=== PATIENT | female | born 1950 | race Caucasian/White ===

== ENCOUNTER 2019-10-07 15:29 | Emergency (ER) | payer OTHER ==
[~2019-10-07] VITALS: Ht 152.4 cm; Wt 49.4 kg
[2019-10-07 16:15] LABS: Basophils # (auto) 0.1 uL; Basophils % (auto) 0.6 % (0.0-2.0); Eosinophils # (auto) 0.1 uL; Eosinophils % (auto) 1.5 % (0.0-7.0); Hematocrit 40.8 % (36.0-46.0); Hemoglobin 13.9 g/dL (12.2-16.2); Lymphocytes % (auto) 10.6 % (10.0-50.0); Mean Corpuscular Hemoglobin 31.9 pg (28.0-32.0); Mean Corpuscular Volume 93.5 fL (80.0-100.0); Monocytes # (auto) 0.5 uL; Monocytes % (auto) 5.6 % (0.0-12.0); Neutrophils # (auto) 7.8 uL; Neutrophils % (auto) 81.7 % (37.0-80.0); Platelet Count (auto) 247 10^3/uL (140-450); Red Blood Cells 4.37 10^6/uL (4.0-5.20); White Blood Cell 9.6 10^3/uL (4.4-10.8)
[2019-10-07 16:25] LABS: Albumin 3.5 g/dL (3.4-5.0); Potassium 4.1 mmol/L (3.5-5.1)
[2019-10-07 16:28] LABS: BUN/Creatinine Ratio 16.1; Bilirubin, Total 0.3 mg/dL (0.2-1.0); Total Protein 6.7 g/dL (6.4-8.2)
[2019-10-07] MEDS ORDERED: TETANUS-DIPTH-ACEL PERTUSSIS 0.5ML SYRG IM ONE (17:45)
[2019-10-07 20:20] VITALS: BP 138/65
== END 2019-10-07 20:28 | disposition home or self-care (01) ==
LOC: ER 15:33
DX: S00.33XA Contusion of nose, initial encounter (principal); S00.531A Contusion of lip, initial encounter; M19.90 Unspecified osteoarthritis, unspecified site; E78.5 Hyperlipidemia, unspecified; I10 Essential (primary) hypertension; F17.210 Nicotine dependence, cigarettes, uncomplicated; W01.198A Fall on same level from slipping, tripping and stumbling with subsequent striking against other object, initial encounter; Y93.89 Activity, other specified; Y92.89 Other specified places as the place of occurrence of the external cause; Y99.8 Other external cause status
CPT/HCPCS: 36415; 70450; 70486; 80053; 85025; 90471; 90715; 93005

== ENCOUNTER 2024-03-19 08:14 | Emergency (ER) | payer OTHER ==
[~2024-03-19] VITALS: Ht 152.4 cm; Wt 46.3 kg
[2024-03-19 09:22] VITALS: PULSE 105; RESP 19; O2SAT 98
[2024-03-19 09:36] LABS: Basophils # (auto) 0 10 ^3/uL (0-0.2); Basophils % (auto) 0.3 % (0.0-2.0); Eosinophils # (auto) 0 10 ^3/uL (0-0.8); Eosinophils % (auto) 0.2 % (0.0-7.0); Hematocrit 40.6 % (36.0-46.0); Hemoglobin 13.6 g/dL (12.2-16.2); Lymphocytes # (auto) 0.9 10 ^3/uL (0.4-5.4); Lymphocytes % (auto) 8.7 % (10.0-50.0); Mean Corpuscular Hemoglobin 31.4 pg (28.0-32.0); Mean Corpuscular Hgb Conc. 33.5 g/dL (32.0-36.0); Mean Corpuscular Volume 93.7 fL (80.0-100.0); Monocytes % (auto) 9.7 % (0.0-12.0); Neutrophils # (auto) 8.6 10 ^3/uL (1.6-8.6); Neutrophils % (auto) 81.1 % (37.0-80.0); Nucleated Red Blood Cells % 0.1 %; Red Blood Cells 4.34 10^6/uL (4.0-5.20); Red Cell Distribution Width 14.7 % (11.8-14.3); White Blood Cell 10.6 10^3/uL (4.4-10.8)
[2024-03-19 09:38] LABS: Base Excess -2.4 mmol/L (-2.0-2.0)
[2024-03-19] MEDS: ALBUTEROL SULF 2.5 MG/0.5ML(0.5%) NEB SOLN NEB ONE (09:39)
[2024-03-19] MEDS: IPRATROPIUM BROM 0.5 MG/2.5ML INH SOL NEB ONE (09:39)
[2024-03-19 09:46] LABS: INR 1.09 (0.9-1.15); Partial Thromboplastin Time 23.9 SEC (24.5-34.5); Prothrombin Time 11.5 sec (9.3-11.8)
[2024-03-19 10:00] LABS: Alanine Aminotransferase 46 U/L (7-40); Albumin 4.1 g/dL (3.2-4.8); Alkaline Phosphatase 80 U/L (46-116); Anion Gap 3 (5-15); Aspartate Aminotransferase 30 U/L (13-40); Blood Urea Nitrogen 13 mg/dL (9-23); Carbon Dioxide 28 mmol/L (20-30); Chloride 109 mmol/L (98-107); Glucose 94 mg/dL (74-106); Magnesium 1.9 mg/dL (1.6-2.6); Potassium 4.6 mmol/L (3.5-5.1); Sodium 140 mmol/L (136-145)
[2024-03-19] MEDS: AZITHROMYCIN 250 MG TAB PO ONE (10:00)
[2024-03-19 10:01] LABS: Bilirubin, Total 0.8 mg/dL (0.2-1.0)
[2024-03-19] MEDS: MAGNESIUM SULFATE 1GM/100ML 100 ML IV SCH (10:01)
[2024-03-19] MEDS: HYDROCORTISONE SOD SUCC 100 MG/2ML INJ VIAL IV ONE (10:01)
[2024-03-19] MEDS: ACETAMINOPHEN 325 MG TAB PO ONE (10:01)
[2024-03-19 10:19] LABS: Calcium 9.1 mg/dL (8.7-10.4)
[2024-03-19] MEDS ORDERED: FURO1TAB33 PO (11:52)
[2024-03-19] MEDS ORDERED: AZIT500T66 PO (11:52)
[2024-03-19] MEDS ORDERED: PRED1PAK9 PO (11:52)
[2024-03-19] MEDS: FUROSEMIDE 40 MG/4 ML VIAL IV ONE (12:21)
[2024-03-19 13:13] VITALS: BP 125/68; PULSE 102; RESP 16; O2SAT 97
== END 2024-03-19 13:46 | disposition home or self-care (01) ==
LOC: EDBD 08:14 → ER 08:14
DX: J44.1 Chronic obstructive pulmonary disease with (acute) exacerbation (principal); I11.0 Hypertensive heart disease with heart failure; I50.9 Heart failure, unspecified; J40 Bronchitis, not specified as acute or chronic; E78.5 Hyperlipidemia, unspecified; F17.210 Nicotine dependence, cigarettes, uncomplicated; Z88.6 Allergy status to analgesic agent; Z85.3 Personal history of malignant neoplasm of breast; Z90.49 Acquired absence of other specified parts of digestive tract
CPT/HCPCS: 36415; 36600; 71045; 80053; 82805; 83735; 83880; 84484; 85025; 85610; 85730; 93005; 94640; 96365; 96375; 99291; J1720; J1940; J3475; J7644

== ENCOUNTER 2025-08-23 22:00 | Inpatient (IN) | payer OTHER ==
[~2025-08-23] VITALS: Ht 152.4 cm; Wt 55.0 kg
[~2025-08-23 22:00] MED LIST: AZIT500T66 PO; FURO1TAB33 PO; PRED1PAK9 PO
--- NOTE | 2025-08-23 22:11 | ECG ---
[facility] Test Date: 2025-08-23 Test Time: 22:03:21 Pat Name: BRANDON LEE Department: ED Room: 0295T Gender: F Welfare Specialist: CHI : 1950 Requested By: MAXIMILIANO CRAIN Order Number: [id number] Reading MD: Stephon Mack Measurements Intervals [place] Rate: 112 P: 53 MN: 163 QRS: 96 QRSD: 135 T: -38 QT: 366 QTc: 500 Interpretive Statements Sinus tachycardia Anterior infarct, acute (LAD) Lateral leads are also involved Electronically Signed On 08-26-2025 17:18:31 PST by Stephon Mack Please click the below link to view image of tracing.
[2025-08-23] MEDS: MORPHINE SULFATE INJ 2 MG/ml SYRG IV ONE ×2 (22:16→23:32)
[2025-08-23] MEDS: MORPHINE SULFATE 4 MG/ML SYR/VIAL ONE (22:19)
[2025-08-23 22:25] LABS: Hematocrit 40.9 % (36.0-46.0); Hemoglobin 13.4 g/dL (12.2-16.2); Mean Corpuscular Hemoglobin 28.1 pg (28.0-32.0); Mean Corpuscular Volume 86.0 fL (80.0-100.0); Nucleated Red Blood Cells % 0.1 %
--- NOTE | 2025-08-23 22:25 | ED.PDOC ---
History of Present Illness HPI Comments 75-year-old female who came to ER via EMS for chest pains. Patient does have history of hypertension, COPD, CHF, breast cancer, NSTEMI. States she has been having intermittent episodes of has been for the past 3 days, initial starting from the left side of the chest going to the right, described as sharp, as sociated shortness of breath, nausea, headaches and dizziness. She was given 324 aspirin while in the ER. Was saturating 84% on room air on scene. REVIEW OF SYSTEMS: General: No fever, no chills, or fatigue HEENT: No sore throat, no earache, no congestion, no neck pain. Cardiac: + chest pain. No palpitations. Lungs: No shortness of breath, no cough. GI: + nausea, no vomiting, no diarrhea, no constipation, + abdominal pain : No dysuria, frequency, or urgency. No hematuria. Musculoskeletal: No joint pain , no joint swelling, no extremity edema. Skin: No rash, no itching. Neuro: No headache, no dizziness, no weakness (And as sated in HPI) PHYSICAL EXAM: General: Awake, alert and oriented. No acute distress. Skin: Skin in warm, dry and intact. Appropriate color for ethnicity. HEENT: The head is normocephalic and atraumatic. Conjunctivae are clear without exudates or hemorrhage. Sclera is non-icteric. Eyelids are normal in appearance without swelling or lesions. Oral mucosa is pink and moist Neck: The neck is supple with normal range of motion. No JVD. Cardiac: Heart rate and rhythm are normal. No murmurs, gallops, or rubs are auscultated. Respiratory: No signs of respiratory distress. Lung sounds are clear in all lobes bilaterally without rales, rhonchi, or wheezes. Abdominal: Abdomen is soft, +-tender without distention, guarding or rigidity. Bowel sounds are present and normoactive in all four quadrants. Extremities: Lower extremities without edema. Neurological: The patient is awake, alert and oriented to person, place, and time with normal speech. Speech is clear. There is no facial asymmetry. Psychiatric: Appropriate mood and affect. Good judgement and insight. Chief Complaint: Chest Pain Time Seen by MD: 22:24 Primary Care Provider: " I DON'T KNOW" Reviewed Notes: Nurses Notes Allergies: Coded Allergies: Codeine (Verified Allergy, Unknown, 03/19/24) Latex (Verified Allergy, Unknown, 08/23/25) Home Meds Active Scripts Furosemide (Lasix) 20 Mg Tb, 1 TAB PO DAILY for 10 Days, #10 TAB 1 Refill Prov:ANABELLE COATS MD 03/19/24 Prednisone (Prednisone) 10 Mg Daryn, 10 MG PO DAILY for 4 Days, #10 PACK 4 Refills Prov:ANABELLE COATS MD 03/19/24 Azithromycin (Azithromycin) 500 Mg Tab, 1 TAB PO DAILY for 3 Days, #3 TAB 0 Refills Prov:ANABELLE COATS MD 03/19/24 Information Source: Patient Mode of Arrival: EMS Past Medical History PAST MEDICAL HISTORY: Arthritis (Rheumatoid), Cancer (Breast), CHF, COPD, CVA, High Lipids, HTN, [place] Surgical History: Cholecystectomy, KENNEL TECHNICIAN History: No Pertinent KENNEL TECHNICIAN History Family History Family History: Reviewed,noncontributory to illness Social History Smoker: Quit Less Than 1 Year, Cigarettes Alcohol: Denies ETOH Use Drugs: Denies Drug Use Lives In: Home Was a procedure done? Was a procedure done?: No EKG EKG : Pulse Rate (adult): 112 Cardiac Rhythm: ST Differential Dx Considerations may include: coronary artery disease, [place], angina, chest pain, shortness of breath X-Ray, Labs, Meds, VS Vital Signs Date Time Temp Pulse Resp B/P (MAP) Pulse Ox O2 Delivery O2 Flow Rate FiO2 08/24/25 00:55 92 08/24/25 00:30 91 18 120/54 (76) 96 08/24/25 00:17 101 20 118/71 08/24/25 00:00 102 18 118/71 (87) 96 08/23/25 23:32 97 16 123/57 08/23/25 23:30 94 18 123/57 (79) 96 08/23/25 23:11 97 22 114/55 08/23/25 23:00 96 20 116/94 (101) 97 08/23/25 22:59 95 08/23/25 22:50 97 20 116/54 (74) 97 08/23/25 22:35 98 18 119/58 (78) 96 08/23/25 22:33 99 22 96 Nasal Cannula* 6 44 12/15/25 22:25 112 08/23/25 22:20 108 20 139/83 (101) 96 08/23/25 22:16 105 20 140/82 08/23/25 22:11 99.6 110 20 161/81 94 99.6 08/23/25 22:07 99.6 111 22 146/52 (83) 97 99.6 08/23/25 22:07 111 08/23/25 22:03 112 Lab Test 08/23/25 23:34 08/23/25 22:40 Range/Units Troponin I High Sensitivity 21 15 </=34 ng/L White Blood Count 12.3 H 4.4-10.8 10^3/uL Red Blood Count 4.76 4.0-5.20 10^6/uL Hemoglobin 13.4 12.2-16.2 g/dL Hematocrit 40.9 36.0-46.0 % Mean Corpuscular Volume 86.0 80.0-100.0 fL Mean Corpuscular Hemoglobin 28.1 28.0-32.0 pg Mean Corpuscular Hemoglobin Concent 32.7 32.0-36.0 g/dL Red Cell Distribution Width 14.6 H 11.8-14.3 % Platelet Count 306 140-450 10^3/uL Mean Platelet Volume 8.2 6.9-10.8 fL Neutrophils (%) (Auto) 85.2 H 37.0-80.0 % Lymphocytes (%) (Auto) 4.8 L 10.0-50.0 % Monocytes (%) (Auto) 9.1 0.0-12.0 % Eosinophils (%) (Auto) 0.1 0.0-7.0 % Basophils (%) (Auto) 0.8 0.0-2.0 % Neutrophils # (Auto) 10.5 H 1.6-8.6 10 ^3/uL Lymphocytes # (Auto) 0.6 0.4-5.4 10 ^3/uL Monocytes # (Auto) 1.1 0-1.3 10 ^3/uL Eosinophils # (Auto) 0 0-0.8 10 ^3/uL Basophils # (Auto) 0.1 0-0.2 10 ^3/uL Nucleated Red Blood Cells 0.1 % Sodium Level 134 L 136-145 mmol/L Potassium Level 4.0 3.5-5.1 mmol/L Chloride Level 97 L 98-107 mmol/L Carbon Dioxide Level 28 20-31 mmol/L Anion Gap 9 5-15 Blood Urea Nitrogen 11 9-23 mg/dL Creatinine 0.50 L 0.550-1.02 mg/dL Glomerular Filtration Rate Calc 97 >90 mL/min BUN/Creatinine Ratio 22.0 H 10.0-20.0 Serum Glucose 140 H 74-106 mg/dL Calcium Level 9.3 8.7-10.4 mg/dL B-Type Natriuretic Peptide 373.54 0-100 pg/mL Lipase 20 12-53 U/L Current Medications Medications (Trade) Dose Ordered Sig/Edmundo Route Start Time Stop Time Status Last Admin Morphine Sulfate 2 mg ONCE ONCE IV 08/23/25 22:15 08/23/25 22:16 DC 08/23/25 22:16 Morphine Sulfate 2 mg ONCE ONCE IV 08/23/25 23:30 08/23/25 23:31 DC 08/23/25 23:32 CHEST RADIOGRAPH INDICATION: cp TECHNIQUE: Single frontal view of the chest was obtained COMPARISON: XY CHEST PORTABLE on DOS: 03/19/24 FINDINGS: Cardiac silhouette is mildly enlarged. Mild prominence of the pulmonary vasculature. Trace bilateral pleural effusions with mild bibasilar atelectasis / consolidation. Bones and soft tissues demonstrate no significant abnormality. IMPRESSION: Mild cardiomegaly and pulmonary vascular congestion with trace bilateral pleural effusions and bibasilar atelectasis/consolidation. Time of 1ST Reevaluation: 22:17 Reevaluation 1ST: Unchanged Patient Education/Counseling: Need For Follow Up Family Education/Counseling: No Family Present SEPSIS Sepsis Screen Date sepsis recognized/suspect: Aug 23, 2025 Time Sepsis recognized/suspect: 2199 Recent Procedure: No On Antibiotic Therapy: No Respiratory Rate >20: No Heart Rate >90: Yes Temp<36 C (96.8 F) or >38.3 C: No SBP <90 or MAP <65 mmHG: No New Acute Mental Status Change: No Is the patient on CPAP, BIPAP,: No Physician Orders Chest Xray 1 View (08/23/25 22:09) Vital Signs Q1HR (08/23/25 22:09) Saline Lock (08/23/25 22:09) Systems Development Consultant (08/23/25 ) Electrocardigram (08/23/25 23:21) Vital Signs Date Time Temp Pulse Resp B/P (MAP) Pulse Ox O2 Delivery O2 Flow Rate FiO2 08/24/25 00:55 92 08/24/25 00:30 91 18 120/54 (76) 96 08/24/25 00:17 101 20 118/71 08/24/25 00:00 102 18 118/71 (87) 96 08/23/25 23:32 97 16 123/57 08/23/25 23:30 94 18 123/57 (79) 96 08/23/25 23:11 97 22 114/55 08/23/25 23:00 96 20 116/94 (101) 97 08/23/25 22:59 95 08/23/25 22:50 97 20 116/54 (74) 97 08/23/25 22:35 98 18 119/58 (78) 96 08/23/25 22:33 99 22 96 Nasal Cannula* 6 44 08/23/25 22:25 112 08/23/25 22:20 108 20 139/83 (101) 96 08/23/25 22:16 105 20 140/82 08/23/25 22:11 99.6 110 20 161/81 94 99.6 08/23/25 22:07 99.6 111 22 146/52 (83) 97 99.6 08/23/25 22:07 111 08/23/25 22:03 112 Laboratory Tests Test 08/23/25 22:40 White Blood Count 12.3 10^3/uL (4.4-10.8) H Medications Medications Dose Ordered Sig/Edmundo Route Start Time Stop Time Status Last Admin Dose Admin Morphine Sulfate 2 mg ONCE ONCE IV 08/23/25 22:15 08/23/25 22:16 DC 08/23/25 22:16 Morphine Sulfate 2 mg ONCE ONCE IV 08/23/25 23:30 08/23/25 23:31 DC 08/23/25 23:32 Departure 1 Departure Time of Disposition: 00:59 Impression: Primary Impression: Chest pain Disposition: ADMITTED INPATIENT Condition: Stable Comments 75-year-old female who presented with the acute chest pain. EKG was reviewed by nonprofit director Dr. Hobbs, interpretation is no STEMI, + LVH. Troponins within normal limits. Patient admitted to hospitalist service for further treatment, evaluation and monitoring. Critical Care Note Critical Care Time?: No Stability Stability form required: No Heart Score Heart Score: Heart Score Response (Comments) Value History N/A 0 EKG N/A 0 Age N/A 0 Risk Factors N/A 0 Troponin N/A 0 Total 0 I personally scribed for MAXIMILIANO CRAIN MD ([email or web address]) on 08/23/25 at 22:25. Electronically submitted by Girma Pretty (Indigio). I personally scribed for MAXIMILIANO CRAIN MD ([email or web address]) on 08/23/25 at 23:42. Electronically submitted by Girma Pretty (Indigio). MAXIMILIANO CRAIN MD Aug 23, 2025 22:25
[2025-08-23 22:33] VITALS: PULSE 99; RESP 22; O2SAT 96
[2025-08-23 22:34] LABS: Potassium 4.0 mmol/L (3.5-5.1)
[2025-08-23 22:35] LABS: Anion Gap 9 (5-15); Carbon Dioxide 28 mmol/L (20-31)
[2025-08-23 22:36] LABS: Calcium 9.3 mg/dL (8.7-10.4)
[2025-08-23 22:41] LABS: BUN/Creatinine Ratio 22.0 (10.0-20.0); Blood Urea Nitrogen 11 mg/dL (9-23); Lipase 20 U/L (12-53)
--- NOTE | 2025-08-23 22:41 | DVH ---
CHEST RADIOGRAPH INDICATION: cp TECHNIQUE: Single frontal view of the chest was obtained COMPARISON: XY CHEST PORTABLE on DOS: 03/19/24 FINDINGS: Cardiac silhouette is mildly enlarged. Mild prominence of the pulmonary vasculature. Trace bilateral pleural effusions with mild bibasilar atelectasis / consolidation. Bones and soft tissues demonstrate no significant abnormality. IMPRESSION: Mild cardiomegaly and pulmonary vascular congestion with trace bilateral pleural effusions and bibasilar atelectasis/consolidation.
[2025-08-23 22:47] LABS: Chloride 97 mmol/L (98-107); Glucose 140 mg/dL (74-106); Sodium 134 mmol/L (136-145)
--- NOTE | 2025-08-23 23:06 | ECG ---
[facility] Test Date: 2025-08-23 Test Time: 22:59:47 Pat Name: BRANDON LEE Department: ED Room: 0295T Gender: F Social Studies Teacher: CHI : 1950 Requested By: MAXIMILIANO CRAIN Order Number: [id number] Reading MD: Stephon Mack Measurements Intervals [place] Rate: 95 P: 51 OK: 168 QRS: 113 QRSD: 139 T: -17 QT: 405 QTc: 509 Interpretive Statements Sinus rhythm Atrial premature complexes Probable left atrial enlargement Anterior infarct, acute (LAD) Lateral leads are also involved Prolonged QT interval Electronically Signed On 08-26-2025 17:18:36 PST by Stephon Mack Please click the below link to view image of tracing.
[2025-08-24] VITALS (12 sets, daily range): BP systolic 109–145; BP diastolic 62–68; PULSE 79–101; RESP 16–21; TEMP 97.2–98.8; O2SAT 95–98
[2025-08-24] MEDS: MORPHINE SULFATE 4 MG/ML SYR/VIAL ONE ×2 (00:02→04:00)
--- NOTE | 2025-08-24 00:58 | ECG ---
[facility] Test Date: 2025-08-24 Test Time: 00:55:30 Pat Name: BRANDON LEE Department: ED Room: 0295T Gender: F Head Of Ethics And Compliance: CHI : 1950 Requested By: MAXIMILIANO CRAIN Order Number: [id number] Reading MD: Stephon Mack Measurements Intervals [place] Rate: 92 P: 78 NE: 177 QRS: 127 QRSD: 137 T: -30 QT: 416 QTc: 515 Interpretive Statements Sinus rhythm Anterior infarct, acute (LAD) Lateral leads are also involved Prolonged QT interval Baseline wander in lead(s) V4 Electronically Signed On 08-26-2025 17:18:44 PST by Stephon Mack Please click the below link to view image of tracing.
[2025-08-24] MEDS ORDERED: ONDANSETRON HCL 4 MG/2 ML VIAL IV PRN (01:30)
[2025-08-24] MEDS: CARVEDILOL 3.125 MG TAB PO ONE (01:30)
[2025-08-24] MEDS ORDERED: NITROGLYCERIN 0.4 MG SL TAB SL PRN (01:30)
[2025-08-24] MEDS: FUROSEMIDE 20 MG/2 ML VIAL IV ONE (01:59)
[2025-08-24] MEDS: AZITHROMYCIN 500MG/250ML 250 ML IV ONE (01:59)
[2025-08-24] MEDS: MORPHINE SULFATE INJ 2 MG/ml SYRG IV PRN (03:52)
[2025-08-24] MEDS: IOHEXOL 350 MG/ML 100ML IJ ONE (04:09)
--- NOTE | 2025-08-24 05:08 | DVHHP2 ---
History of Present Illness Reason for Visit: Chest pain History of Present Illness 75-year-old female presents for evaluation of chest pain. Patient reports a two day history of right-sided nonradiating sharp chest pain with associated shortness for breath. On arrival patient was hypoxic in the low 80s currently on 3 L of nasal cannula saturating 92%. Patient states the pain is sharp and nonradiating. No nausea or vomiting. No fever or chills. Patient quit smoking last month. Past Medical History COPD, CHF, CVA, rheumatoid arthritis, hypertension Past Surgical History , cholecystectomy Family History Noncontributory Smoke: Quit ALCOHOL: none Drugs: None Lives: with Family Review of Systems Review of Systems Review of systems are currently negative otherwise addressed in HPI. Allergies: Coded Allergies: Codeine (Verified Allergy, Unknown, 03/19/24) Latex (Verified Allergy, Unknown, 08/23/25) Medications Current Medications Medications Dose Ordered Sig/Edmundo Route Start Time Stop Time Status Last Admin Dose Admin Furosemide 40 mg DAILY PO 08/24/25 10:00 Albuterol 2.5 mg Q6HPRN PRN NEB 08/24/25 01:30 Ipratropium Champion 0.5 mg Q6HPRN PRN NEB 08/24/25 01:30 Azithromycin 250 ml @ 125 mls/hr Q24H IV 08/24/25 21:00 Cancel Pantoprazole Sodium 40 mg DAILY@0600 PO 08/24/25 06:00 Carvedilol 3.125 mg Q12HR PO 08/24/25 10:00 Clopidogrel Bisulfate 75 mg DAILY PO 08/24/25 10:00 Aspirin 81 mg DAILY PO 08/24/25 10:00 Ondansetron HCl 4 mg Q4HP PRN IV 08/24/25 01:30 Enoxaparin Sodium 40 mg DAILY SC 08/24/25 10:00 Acetaminophen 650 mg Q6HP PRN PO 08/24/25 01:30 Nitroglycerin 0.4 mg Q5MINP PRN SL 08/24/25 01:30 Morphine Sulfate 2 mg Q30M PRN IV 08/24/25 01:30 08/24/25 03:52 2 MG Azithromycin 500 mg Q24H PO 08/24/25 21:00 Exam Vital Signs Vital Signs Date Time Temp Pulse Resp B/P (MAP) Pulse Ox O2 Delivery O2 Flow Rate FiO2 08/24/25 03:52 96 21 123/60 08/24/25 03:40 95 08/24/25 02:06 5.0 40 08/24/25 02:04 Nasal Cannula 08/23/25 22:11 99.6 99.6 Exam Gen: 75-year-old female in mild distress Skin: Warm, dry, normal color and texture, no rash. HEENT: Normocephalic atraumatic, mucous membranes moist and pink. Neck: Cervical and supraclavicular nodes normal without enlargement, trachea is midline, thyroid gland is normal without masses. Pulmonary: Diminished breath sounds bilaterally Cardiac: Regular rate and rhythm. No murmur Abdomen: Soft, nontender, nondistended, bowel sounds present all 4 quadrants, no guarding, no rigidity, no organomegaly. Extremities: No cyanosis, clubbing, no edema Neuro: Cranial nerves II through XII grossly intact, normal affect and speech, no focal motor deficits. Labs/Xrays ORDERING PHYSICIAN: MAXIMILIANO CRAIN MD PROCEDURE(s): CXR1 - CHEST XRAY 1 VIEW REASON: cp ORDER NUMBER(s): [id number], ACCESSION NUMBER(s): [id number] CHEST RADIOGRAPH INDICATION: cp TECHNIQUE: Single frontal view of the chest was obtained COMPARISON: XY CHEST PORTABLE on DOS: 03/19/24 FINDINGS: Cardiac silhouette is mildly enlarged. Mild prominence of the pulmonary vasculature. Trace bilateral pleural effusions with mild bibasilar atelectasis / c onsolidation. Bones and soft tissues demonstrate no significant abnormality. IMPRESSION: Mild cardiomegaly and pulmonary vascular congestion with trace bilateral pleural effusions and bibasilar atelectasis/consolidation. Labs Test 08/24/25 01:36 08/23/25 22:40 Range/Units D-Dimer, Quantitative 2.36 H 0.0-0.49 mg/L FEU Troponin I High Sensitivity 21 </=34 ng/L White Blood Count 12.3 H 4.4-10.8 10^3/uL Red Blood Count 4.76 4.0-5.20 10^6/uL Hemoglobin 13.4 12.2-16.2 g/dL Hematocrit 40.9 36.0-46.0 % Mean Corpuscular Volume 86.0 80.0-100.0 fL Mean Corpuscular Hemoglobin 28.1 28.0-32.0 pg Mean Corpuscular Hemoglobin Concent 32.7 32.0-36.0 g/dL Red Cell Distribution Width 14.6 H 11.8-14.3 % Platelet Count 306 140-450 10^3/uL Mean Platelet Volume 8.2 6.9-10.8 fL Neutrophils (%) (Auto) 85.2 H 37.0-80.0 % Lymphocytes (%) (Auto) 4.8 L 10.0-50.0 % Monocytes (%) (Auto) 9.1 0.0-12.0 % Eosinophils (%) (Auto) 0.1 0.0-7.0 % Basophils (%) (Auto) 0.8 0.0-2.0 % Neutrophils # (Auto) 10.5 H 1.6-8.6 10 ^3/uL Lymphocytes # (Auto) 0.6 0.4-5.4 10 ^3/uL Monocytes # (Auto) 1.1 0-1.3 10 ^3/uL Eosinophils # (Auto) 0 0-0.8 10 ^3/uL Basophils # (Auto) 0.1 0-0.2 10 ^3/uL Nucleated Red Blood Cells 0.1 % Sodium Level 134 L 136-145 mmol/L Potassium Level 4.0 3.5-5.1 mmol/L Chloride Level 97 L 98-107 mmol/L Carbon Dioxide Level 28 20-31 mmol/L Anion Gap 9 5-15 Blood Urea Nitrogen 11 9-23 mg/dL Creatinine 0.50 L 0.550-1.02 mg/dL Glomerular Filtration Rate Calc 97 >90 mL/min BUN/Creatinine Ratio 22.0 H 10.0-20.0 Serum Glucose 140 H 74-106 mg/dL Calcium Level 9.3 8.7-10.4 mg/dL B-Type Natriuretic Peptide 373.54 0-100 pg/mL Lipase 20 12-53 U/L SEPSIS Sepsis Screen Date sepsis recognized/suspect: Aug 23, 2025 Time Sepsis recognized/suspect: 2238 Recent Procedure: No On Antibiotic Therapy: No Respiratory Rate >20: No Heart Rate >90: No Temp<36 C (96.8 F) or >38.3 C: No SBP <90 or MAP <65 mmHG: No New Acute Mental Status Change: No Is the patient on CPAP, BIPAP,: No Physician Orders Chest Xray 1 View (08/23/25 22:09) Vital Signs Q1HR (08/23/25 22:09) Saline Lock (08/23/25 22:09) Other Spatial Scientist (08/23/25 ) Electrocardigram (08/23/25 23:21) Furosemide Tablet (Lasix Tablet) (08/24/25 10:00) Albuterol Medneb (Ventolin Medneb) (08/24/25 01:30) Ipratropium Medneb (Atrovent Medneb) (08/24/25 01:30) Pantoprazole Tablet (Protonix Tablet) (08/24/25 06:00) Carvedilol Tablet (Coreg Tablet) (08/24/25 10:00) Clopidogrel Bisulfate (Plavix) (08/24/25 10:00) Aspirin Tablet (08/24/25 10:00) Admit (08/24/25 01:25) Ondansetron Hcl (Zofran) (08/24/25 01:30) Enoxaparin Sodium (Lovenox) (08/24/25 10:00) Complete Blood Count (08/25/25 04:00) Cardiac Diet-2gna,Lofat,Lochol (08/24/25 Breakfast) Echo 2d Mode Cardiac Dop (08/24/25:25) Condition: Fair (08/24/25:25) Acetaminophen Tablet (Tylenol Tablet) (08/24/25 01:30) Bedrest With Bathroom Privileg (08/24/25:25) Nitroglycerin Sublingual (Ntrostat Subli (08/24/25 01:30) Morphine Sulfate Injection (08/24/25 01:30) Stat Ekg For Chest Pain (08/24/25:25) Notify Of Changes From Base (08/24/25:25) Medical Receptionist For 24 Hours (08/24/25 01:25) Emergency Dysrhythmia Protocol (08/24/25:25) Rhythm Strips Once Every Shift (08/24/25:25) Oxygen By Nasal Cannula (08/24/25 01:25) Basic Metabolic Panel (08/25/25 04:00) Azithromycin Tablet (Zithromax Tablet) (08/24/25 21:00) Ct Angio Chest Contrast (08/24/25 03:49) Vital Signs Date Time Temp Pulse Resp B/P (MAP) Pulse Ox O2 Delivery O2 Flow Rate FiO2 08/24/25 03:52 96 21 123/60 08/24/25 03:40 98 16 123/60 (81) 95 08/24/25 02:06 79 21 113/62 96 5.0 40 08/24/25 02:04 96 Nasal Cannula 5.0 08/24/25 02:04 96 Nasal Cannula* 5 40 08/24/25 02:01 99 18 103/67 (79) 97 08/24/25 01:59 113/62 08/24/25 01:30 95 113/62 08/24/25 01:27 93 18 130/58 (82) 96 08/24/25 00:55 92 08/24/25 00:30 91 18 120/54 (76) 96 08/24/25 00:17 101 20 118/71 08/24/25 00:00 102 18 118/71 (87) 96 08/23/25 23:32 97 16 123/57 08/23/25 23:30 94 18 123/57 (79) 96 08/23/25 23:11 97 22 114/55 08/23/25 23:00 96 20 116/94 (101) 97 08/23/25 22:59 95 08/23/25 22:50 97 20 116/54 (74) 97 08/23/25 22:35 98 18 119/58 (78) 96 08/23/25 22:33 99 22 96 Nasal Cannula* 6 44 08/23/25 22:25 112 08/23/25 22:20 108 20 139/83 (101) 96 08/23/25 22:16 105 20 140/82 08/23/25 22:11 99.6 110 20 161/81 94 99.6 08/23/25 22:07 99.6 111 22 146/52 (83) 97 99.6 08/23/25 22:07 111 08/23/25 22:03 112 Laboratory Tests Test 08/23/25 22:40 White Blood Count 12.3 10^3/uL (4.4-10.8) H Medications Medications Dose Ordered Sig/Edmundo Route Start Time Stop Time Status Last Admin Dose Admin Azithromycin 250 ml @ 125 mls/hr ONCE ONCE IV 08/24/25 01:30 08/24/25 03:29 DC 08/24/25 01:59 125 MLS/HR Furosemide 20 mg ONCE ONCE IV 08/24/25 01:30 08/24/25 01:40 DC 08/24/25 01:59 20 MG Morphine Sulfate 2 mg ONCE ONCE IV 08/23/25 22:15 08/23/25 22:16 DC 08/23/25 22:16 2 MG Morphine Sulfate 2 mg ONCE ONCE IV 08/23/25 23:30 08/23/25 23:31 DC 08/23/25 23:32 2 MG Morphine Sulfate 2 mg Q30M PRN IV 08/24/25 01:30 08/24/25 03:52 2 MG Assessment/Plan Assessment/Plan Assessment Acute on chronic hypoxic respiratory failure Congestive heart failure COPD with possible exacerbation Elevated D-dimer rule out PE Pneumonitis Plan Admit the patient to telemetry to the hospitalist Azithromycin Med nebs IV Lasix CT angiogram pending Resume home medications Continue treatment per orders Plan discussed with: Patient My Orders Orders - ANGY SOLANO Procedure Category Date Status Time Furosemide Tablet PHA 08/24/25 In Process (Lasix Tablet) 10:00 Albuterol Medneb PHA 08/24/25 In Process (Ventolin Medneb) 01:30 Ipratropium Medneb PHA 08/24/25 In Process (Atrovent Medneb) 01:30 Pantoprazole Tablet PHA 08/24/25 In Process (Protonix Tablet) 06:00 Carvedilol Tablet PHA 08/24/25 In Process (Coreg Tablet) 10:00 Clopidogrel Bisulfate PHA 08/24/25 In Process (Plavix) 10:00 Aspirin Tablet PHA 08/24/25 In Process 10:00 Admit ADMIT 08/24/25 Transmitted 01:25 Ondansetron Hcl PHA 08/24/25 In Process (Zofran) 01:30 Enoxaparin Sodium PHA 08/24/25 In Process (Lovenox) 10:00 Complete Blood Count LAB 08/25/25 Verified 04:00 Cardiac DIET 08/24/25 Transmitted Diet-2gna,Lofat,Lochol Breakfast Echo 2d Mode Cardiac US 08/24/25 Logged DOP 01:25 Condition: Fair [facility] 08/24/25 In Process 01:25 Acetaminophen Tablet PHA 08/24/25 In Process (Tylenol Tablet) 01:30 Bedrest With Bathroom [facility] 08/24/25 In Process Privileg 01:25 Nitroglycerin [facility] 08/24/25 In Process Sublingual (Ntrostat 01:30 Morphine Sulfate [facility] 08/24/25 In Process Injection 01:30 Stat Ekg For Chest [facility] 08/24/25 In Process Pain 01:25 Notify Md Of Changes [facility] 08/24/25 In Process From Base 01:25 Medical Receptionist For [facility] 08/24/25 In Process 24 Hours 01:25 Emergency Dysrhythmia [facility] 08/24/25 In Process Protocol 01:25 Rhythm Strips Once [facility] 08/24/25 In Process Every Shift 01:25 Oxygen By Nasal RT 08/24/25 Transmitted Cannula 01:25 Basic Metabolic Panel LAB 08/25/25 Verified 04:00 Azithromycin Tablet [facility] 08/24/25 In Process (Zithromax Tablet) 21:[address] 08/24/25 Taken Contrast 03:49 Date of Service: Aug 24, 2025 Billing Provider: ANGY SOLANO Common Visit Codes: [id number] INP/OBS CARE (HIGH) ANGY SOLANO Aug 24, 2025 05:08
--- NOTE | 2025-08-24 05:17 | DVH ---
CTA Chest with intravenous contrast INDICATION: R/O PE COMPARISON: XY CHEST XRAY 1 VIEW on DOS: 08/23/25, XY CHEST PORTABLE on DOS: 03/19/24 TECHNIQUE: Multidetector spiral CTA of the chest was performed of the chest with intravenous contrast. PULMONARY ANGIOGRAPHY PROTOCOL was utilized using a bolus- tracking technique centered on the main pulmonary artery. Axial, coronal and sagittal multiplanar and MIP reformats were performed. Radiation Dose : 1. Chest: CTDI volume is 14.8 mGy. Dose-length product is 477.1 mGy*cm The dose indicators for CT are the volume Computed Tomography (CT) Dose Index (CTDIvol) and the Dose Length Product (DLP), and are measured in units of mGy and mGy-cm, respectively. These indicators are not patient dose, but values generated from the CT scanner acquisition factors. The report includes radiation exposure data for exposures received during this examination. FINDINGS: Pulmonary artery: Nonocclusive filling defect extending into the right lower lobar, segmental and subsegmental branches of the pulmonary arterial vasculature consistent with pulmonary embolus. No evidence of right heart strain. Lower neck: Normal thyroid. Lungs: Small right pleural effusion with adjacent atelectasis and patchy right lower lobe parenchymal consolidation. Calcified granuloma within the anterior left upper lobe. Mild diffuse bilateral ground-glass opacity. Left basilar atelectasis. No evidence of pneumothorax. Heart/Vascular Structures: Cardiomegaly. No pericardial effusion. Atherosclerotic vascular calcifications. Lymph Nodes: Mediastinal and right hilar lymphadenopathy, for example, 1.6 cm precarinal node. Musculoskeletal: No acute osseous abnormality. Soft tissues: Normal. Upper abdomen: Limited portions of the upper abdomen are unremarkable. IMPRESSION: 1. Nonocclusive pulmonary embolism extending into the right lower lobar, segmental and subsegmental branches of the pulmonary artery. 2. Small right pleural effusion with adjacent atelectasis and patchy right lower lobe parenchymal consolidation. 3. Cardiomegaly. 4. Mediastinal and right hilar lymphadenopathy. Critical Result: Pulmonary embolus Findings discussed with Dr. Daugherty at 08/24/2025 08:14 AM EST, and acknowledged receipt and understanding of the findings.
[2025-08-24] MEDS: ENOXAPARIN SOD 100 MG/1 ML SYRINGE SC SCH (05:37)
[2025-08-24] MEDS: PANTOPRAZOLE 40 MG TAB PO SCH (05:39)
[2025-08-24] MEDS ORDERED: LEFL1TAB3 PO (09:07)
[2025-08-24] MEDS: FUROSEMIDE 40 MG TAB PO SCH (09:50)
[2025-08-24] MEDS: CLOPIDOGREL BISULFATE 75 MG TAB PO SCH (09:51)
--- NOTE | 2025-08-24 09:58 | DVHPN2 ---
Subjective She had right-sided chest pain for 2 days CTA of the lungs showed pulmonary embolism She has COPD No home O2 Changes from previous H/P or p: Changes Objective Vitals Vital Signs Date Time Temp Pulse Resp B/P (MAP) Pulse Ox O2 Delivery O2 Flow Rate FiO2 08/24/25 09:50 145/64 08/24/25 08:37 98.8 99 18 97 98.8 08/24/25 07:28 Nasal Cannula* 5 40 Intake/Output Intake and Output 08/24/25 07:00 Intake Total 250 ml Balance 250 ml Intake IV Total 250 ml General Appearance: Alert, Oriented X3, Cooperative, mild distress Lungs: Clear to auscultation Cardiovascular: Regular rate, Normal S1, Normal S2 Abdomen: Normal bowel sounds, Soft, No tenderness Extremities: No edema Medications Current Medications Medications Dose Ordered Sig/Edmundo Route Start Time Stop Time Status Last Admin Dose Admin Furosemide 40 mg DAILY PO 08/24/25 10:00 08/24/25 09:50 40 MG Albuterol 2.5 mg Q6HPRN PRN NEB 08/24/25 01:30 Ipratropium [place] 0.5 mg Q6HPRN PRN NEB 08/24/25 01:30 Azithromycin 250 ml @ 125 mls/hr Q24H IV 08/24/25 21:00 Cancel Pantoprazole Sodium 40 mg DAILY@0600 PO 08/24/25 06:00 08/24/25 05:39 40 MG Carvedilol 3.125 mg Q12HR PO 08/24/25 10:00 Clopidogrel Bisulfate 75 mg DAILY PO 08/24/25 10:00 08/24/25 09:51 75 MG Aspirin 81 mg DAILY PO 08/24/25 10:00 Ondansetron HCl 4 mg Q4HP PRN IV 08/24/25 01:30 Acetaminophen 650 mg Q6HP PRN PO 08/24/25 01:30 Nitroglycerin 0.4 mg Q5MINP PRN SL 08/24/25 01:30 Morphine Sulfate 2 mg Q30M PRN IV 08/24/25 01:30 08/24/25 03:52 2 MG Azithromycin 500 mg Q24H PO 08/24/25 21:00 Enoxaparin Sodium 50 mg BID@0600,1800 SC 08/24/25 18:00 Laboratory Results Laboratory Tests 08/23/25 22:40 Chemistry Test 08/23/25 22:40 Calcium Level 9.3 mg/dL (8.7-10.4) Coagulation Test 08/24/25 01:36 D-Dimer, Quantitative 2.36 mg/L FEU (0.0-0.49) H Lipid panel Test 08/23/25 22:40 Lipase 20 U/L (12-53) Cardiac Markers Test 08/23/25 22:40 B-Type Natriuretic Peptide 373.54 pg/mL (0-100) Assessment/Plan Assessment/Plan Acute hypoxic respiratory failure Acute pulmonary embolism COPD Chronic respiratory failure History of CHF History of CVA Rheumatoid arthritis Hypertension PLAN: Lovenox 1 mg per kg twice a day Oxygen as needed Med neb treatments as needed Echocardiogram [place] p.r.n. Full code Lasix 40 mg daily Monitor closely Plan discussed with: Patient Date of Service: Aug 24, 2025 Billing Provider: YNES MONTOYA MD Common Visit Codes: NOT BILLABLE YNES MONTOYA MD Aug 24, 2025 09:58
[2025-08-24] MEDS ORDERED: ENOXAPARIN SOD 40 MG/0.4 ML SYRINGE SC SCH (10:00)
[2025-08-24] MEDS: CARVEDILOL 3.125 MG TAB PO SCH (10:00)
[2025-08-24] MEDS ORDERED: HYDROcodone-ACET 5/325MG TAB PO PRN (13:30)
[2025-08-24] MEDS: HYDROcodone-ACET 5/325MG TAB PO PRN ×2 (14:28→20:45)
--- NOTE | 2025-08-24 16:09 | DVHSR ---
APPROVED REPORT EXAM: Two-dimensional and M-mode echocardiogram with Doppler and color Doppler. Blood Pressure: 122/92 mmHg INDICATION EF RISK FACTORS Height: 5', Weight: 120 DIMENSIONS LVDd 5.2 (3.8-5.7cm) LA (2D) 4.6 (1.9-4.0cm) Aortic Root 3.0 (2.0-3.7cm) LVDs 4.6 (2.5-4.0cm) LA (MM) (1.9-4.0cm) Aortic Cusp Exc 2.0 (1.5-2.0cm) EF (%) 27.0 (55-70%) Rt. Atrium 3.7 (1.9-4.0cm) Asc. Aorta cm IVSd 1.4 (0.7-1.1cm) RV (D) 3.6 (1.8-2.4cm) PWd 0.6 (0.7-1.1cm) Mitral Valve Mitral Mitral Stenosis E wave m/s MV Mean GR. 2mmHg A wave m/s MV Peak GR. 7mmHg E/A ratio 0.0 2D MVA cm2 Aortic Valve Aortic Valve Aortic Stenosis V1 1.20m/s AO Mean GR. 6mmHg V2 1.67m/s AO Peak GR. 11mmHg LVOT Diameter 2.2 (1.8-2.4cm) Doppler USMAN 2.73cm2 Pulmonic Valve V2 1.13m/s Other Information Quality : Technically Limited Rhythm : Technically limited study due to body habitus and pt breathing pattern Conclusion lvef 30% dyskinetic septum heavy MAC, mild mitral stenosis left atrium enlarged mild RV no well seen
[2025-08-24] MEDS: ENOXAPARIN SOD 60 MG/0.6 ML SYRINGE SC SCH (17:54)
[2025-08-24] MEDS ORDERED: AZITHROMYCIN 500MG/250ML 250 ML IV SCH (21:00)
[2025-08-24] MEDS: AZITHROMYCIN 250 MG TAB PO SCH (21:50)
[2025-08-24] MEDS: ALBUTEROL SULF 2.5 MG/0.5ML(0.5%) NEB SOLN NEB PRN (22:17)
[2025-08-24] MEDS: IPRATROPIUM BROM 0.5 MG/2.5ML INH SOL NEB PRN (22:18)
[2025-08-25] VITALS (13 sets, daily range): BP systolic 101–123; BP diastolic 54–97; PULSE 74–90; RESP 16–22; TEMP 97–99.2; O2SAT 94–97
[2025-08-25 07:33] LABS: Hematocrit 38.1 % (36.0-46.0); Hemoglobin 12.6 g/dL (12.2-16.2); Mean Corpuscular Hemoglobin 28.4 pg (28.0-32.0); Mean Corpuscular Volume 86.0 fL (80.0-100.0); Nucleated Red Blood Cells % 0.0 %
[2025-08-25 07:47] LABS: Alkaline Phosphatase 90 U/L (46-116); Anion Gap 11 (5-15); BUN/Creatinine Ratio 20.0 (10.0-20.0); Bilirubin, Total 0.6 mg/dL (0.2-1.0); Cholesterol 142 mg/dL (< 200); Glucose 99 mg/dL (74-106); Magnesium 1.8 mg/dL (1.6-2.6); Potassium 3.8 mmol/L (3.5-5.1); Sodium 137 mmol/L (136-145); Triglycerides 92 mg/dL (< 150)
[2025-08-25 07:56] LABS: Alanine Aminotransferase < 9 U/L (7-40); Albumin 3.1 g/dL (3.2-4.8); Blood Urea Nitrogen 9 mg/dL (9-23); Calcium 8.6 mg/dL (8.7-10.4); Carbon Dioxide 31 mmol/L (20-31); Chloride 95 mmol/L (98-107); HDL Cholesterol 32 mg/dL (40-59); Total Protein 5.6 g/dL (5.7-8.2)
[2025-08-25] MEDS: ASPirin-EC 81 mg tab PO SCH (09:13)
--- NOTE | 2025-08-25 11:51 | MEDREC ---
[facility] Intervention Section I [facility] Intervention: Review courses of therapy (DUE TO PROLONG QTc > 500 PLEASE CONSIDER SWITCHING AZITHROMYCIN TO DOXYCYCLINE ) MARJORIE LIZ PHARMACIST Aug 25, 2025 11:51
--- NOTE | 2025-08-25 14:41 | DVHPN2 ---
Subjective She had hemoptysis today Still complains of right-sided chest pain Changes from previous H/P or p: Changes Objective Vitals Vital Signs Date Time Temp Pulse Resp B/P (MAP) Pulse Ox O2 Delivery O2 Flow Rate FiO2 08/25/25 13:00 99.2 85 20 103/61 (75) 95 99.2 08/25/25 10:00 Nasal Cannula 2.0 08/25/25 10:00 28 Intake/Output Intake and Output 08/25/25 07:00 Intake Total 1380 ml Balance 1380 ml Intake Oral 1380 ml # Voids 9 General Appearance: Alert, Oriented X3, Cooperative, mild distress Lungs: Clear to auscultation Cardiovascular: Regular rate, Normal S1, Normal S2 Abdomen: Normal bowel sounds, Soft, No tenderness Extremities: No edema Medications Current Medications Medications Dose Ordered Sig/Edmundo Route Start Time Stop Time Status Last Admin Dose Admin Furosemide 40 mg DAILY PO 08/24/25 10:00 08/25/25 09:12 40 MG Albuterol 2.5 mg Q6HPRN PRN NEB 08/24/25 01:30 08/25/25 07:54 2.5 MG Ipratropium [place] 0.5 mg Q6HPRN PRN NEB 08/24/25 01:30 08/25/25 07:54 0.5 MG Azithromycin 250 ml @ 125 mls/hr Q24H IV 08/24/25 21:00 Cancel Pantoprazole Sodium 40 mg DAILY@0600 PO 08/24/25 06:00 08/25/25 06:38 40 MG Carvedilol 3.125 mg Q12HR PO 08/24/25 10:00 08/25/25 09:13 3.125 MG Clopidogrel Bisulfate 75 mg DAILY PO 08/24/25 10:00 08/25/25 09:13 75 MG Ondansetron HCl 4 mg Q4HP PRN IV 08/24/25 01:30 Acetaminophen 650 mg Q6HP PRN PO 08/24/25 01:30 Nitroglycerin 0.4 mg Q5MINP PRN SL 08/24/25 01:30 Morphine Sulfate 2 mg Q30M PRN IV 08/24/25 01:30 08/24/25 03:52 2 MG Azithromycin 500 mg Q24H PO 08/24/25 21:00 08/24/25 21:50 500 MG Enoxaparin Sodium 50 mg BID@0600,1800 SC 08/24/25 18:00 08/25/25 06:39 50 MG Aspirin 81 mg DAILY PO 08/25/25 10:00 08/25/25 09:13 81 MG Acetaminophen/ Hydrocodone Bitart 1 tab Q4HP PRN PO 08/24/25 18:15 08/25/25 14:24 1 TAB Laboratory Results Laboratory Tests 08/25/25 06:25 Chemistry Test 08/25/25 06:25 Albumin 3.1 g/dL (3.2-4.8) L Calcium Level 8.6 mg/dL (8.7-10.4) L Magnesium Level 1.8 mg/dL (1.6-2.6) Total Protein 5.6 g/dL (5.7-8.2) L Lipid panel Test 08/25/25 06:25 Cholesterol Level 142 mg/dL (< 200) HDL Cholesterol 32 mg/dL (40-59) L Triglycerides Level 92 mg/dL (< 150) LFT Test 08/25/25 06:25 Alanine Aminotransferase (ALT) < 9 U/L (7-40) Alkaline Phosphatase 90 U/L (46-116) Aspartate Amino Transferase (AST) 10 U/L (13-40) L Total Bilirubin 0.6 mg/dL (0.2-1.0) HgA1c, TSH Test 08/25/25 06:25 Thyroid Stimulating Hormone (TSH) 0.01 uIU/mL (0.55-4.78) L Assessment/Plan Assessment/Plan Acute hypoxic respiratory failure Acute pulmonary embolism COPD Chronic respiratory failure History of CHF History of CVA Rheumatoid arthritis Hypertension PLAN: Lovenox 1 mg per kg twice a day Oxygen as needed Med neb treatments as needed Echocardiogram [place] p.r.n. Full code Lasix 40 mg daily Monitor closely 08/25/2025: Switch Lovenox to Eliquis starting tomorrow Discontinue Plavix Lasix 40 mg p.o. daily Plan discussed with: Patient My Orders Orders - YNES MONTOYA MD Procedure Category Date Status Time Hydrocodone-Acet PHA 08/24/25 In Process 5/325mg Tab ([place] 18:15 Pt Request For Service PT 08/25/25 Logged 10:20 Date of Service: Aug 25, 2025 Billing Provider: YNES MONTOYA MD Common Visit Codes: NOT BILLABLE YNES MONTOYA MD Aug 25, 2025 14:41
[2025-08-26] VITALS (15 sets, daily range): BP systolic 94–142; BP diastolic 57–86; PULSE 72–90; RESP 16–20; TEMP 97–98.3; O2SAT 90–98
[2025-08-26] MEDS: APIXABAN 5 MG TAB PO SCH (08:45)
--- NOTE | 2025-08-26 10:09 | DVHPN2 ---
Subjective No new complaints On 3 L nasal cannula oxygen Changes from previous H/P or p: Changes Objective Vitals Vital Signs Date Time Temp Pulse Resp B/P (MAP) Pulse Ox O2 Delivery O2 Flow Rate FiO2 08/26/25 09:45 80 115/61 08/26/25 09:03 18 98 08/26/25 08:53 Nasal Cannula* 3 32 08/26/25 08:49 97.6 97.6 Intake/Output Intake and Output 08/26/25 07:00 Intake Total 1980 ml Balance 1980 ml Intake Oral 1980 ml # Voids 5 General Appearance: Alert, Oriented X3, Cooperative, mild distress Lungs: Clear to auscultation Cardiovascular: Regular rate, Normal S1, Normal S2 Abdomen: Normal bowel sounds, Soft, No tenderness Extremities: No edema Medications Current Medications Medications Dose Ordered Sig/Edmundo Route Start Time Stop Time Status Last Admin Dose Admin Furosemide 40 mg DAILY PO 08/24/25 10:00 08/26/25 08:46 40 MG Albuterol 2.5 mg Q6HPRN PRN NEB 08/24/25 01:30 08/26/25 08:52 2.5 MG Ipratropium [place] 0.5 mg Q6HPRN PRN NEB 08/24/25 01:30 08/26/25 08:52 0.5 MG Azithromycin 250 ml @ 125 mls/hr Q24H IV 08/24/25 21:00 Cancel Pantoprazole Sodium 40 mg DAILY@0600 PO 08/24/25 06:00 08/26/25 06:39 40 MG Carvedilol 3.125 mg Q12HR PO 08/24/25 10:00 08/26/25 08:45 3.125 MG Ondansetron HCl 4 mg Q4HP PRN IV 08/24/25 01:30 Acetaminophen 650 mg Q6HP PRN PO 08/24/25 01:30 Nitroglycerin 0.4 mg Q5MINP PRN SL 08/24/25 01:30 Morphine Sulfate 2 mg Q30M PRN IV 08/24/25 01:30 08/24/25 03:52 2 MG Azithromycin 500 mg Q24H PO 08/24/25 21:00 08/25/25 22:17 500 MG Aspirin 81 mg DAILY PO 08/25/25 10:00 08/26/25 08:46 81 MG Acetaminophen/ Hydrocodone Bitart 1 tab Q4HP PRN PO 08/24/25 18:15 08/26/25 01:23 1 TAB Apixaban 10 mg BID PO 08/26/25 10:00 09/02/25 09:59 08/26/25 08:45 10 MG Laboratory Results Laboratory Tests 08/25/25 06:25 Assessment/Plan Assessment/Plan Acute hypoxic respiratory failure Acute pulmonary embolism COPD Chronic respiratory failure History of CHF History of CVA Rheumatoid arthritis Hypertension PLAN: Lovenox 1 mg per kg twice a day Oxygen as needed Med neb treatments as needed Echocardiogram [place] p.r.n. Full code Lasix 40 mg daily Monitor closely 08/25/2025: Switch Lovenox to Eliquis starting tomorrow Discontinue Plavix Lasix 40 mg p.o. daily 08/26/2025: Continue Eliquis Continue Coreg Lasix Oxygen as needed Hemoptysis: Monitor closely Chronic respiratory failure Plan discussed with: Patient, Daughter My Orders Orders - YNES MONTOYA MD Procedure Category Date Status Time Pt Request For Service PT 08/25/25 Logged 10:20 Apixaban (Eliquis) PHA 08/26/25 In Process 10:00 Date of Service: Aug 26, 2025 Billing Provider: YNES MONTOYA MD Common Visit Codes: NOT BILLABLE YNES MONTOYA MD Aug 26, 2025 10:08
--- NOTE | 2025-08-26 15:11 | MEDREC ---
[facility] Intervention Section I [facility] Intervention: Review courses of therapy (PT HAS HAD THREE QTc OVER 500ms, PLEASE CONSIDER CHANGING AZITHROMYCIN TO DOXYCYCLINE) BRANDON BOATENG PHARMACIST Aug 26, 2025 15:11
[2025-08-26] MEDS: DOXYCYCLINE 100MG/100ML 100 ML IV SCH (20:52)
[2025-08-27] VITALS (11 sets, daily range): BP systolic 103–125; BP diastolic 56–72; PULSE 68–101; RESP 16–18; TEMP 95.6–97.6; O2SAT 95–97
[2025-08-27 06:58] LABS: Hematocrit 37.7 % (36.0-46.0); Hemoglobin 12.5 g/dL (12.2-16.2); Mean Corpuscular Hemoglobin 28.5 pg (28.0-32.0); Mean Corpuscular Volume 86.0 fL (80.0-100.0); Nucleated Red Blood Cells % 0.2 %
[2025-08-27 07:05] LABS: INR 1.2 (0.9-1.15); Partial Thromboplastin Time 32.2 SEC (24.5-34.5); Prothrombin Time 12.5 sec (9.3-11.8)
[2025-08-27 07:12] LABS: Free T3 3.74 pg/mL (2.3-4.2)
[2025-08-27 07:13] LABS: Free T4 (Free Thyroxine) 1.24 ng/dL (0.89-1.76)
[2025-08-28] VITALS (11 sets, daily range): BP systolic 104–123; BP diastolic 51–69; PULSE 71–100; RESP 16–84; TEMP 97.5–98.1; O2SAT 95–99
[2025-08-28] MEDS: ACETAMINOPHEN 325 MG TAB PO PRN (00:31)
[2025-08-29] VITALS (9 sets, daily range): BP systolic 111–133; BP diastolic 66–83; PULSE 82–97; RESP 17–19; TEMP 97.4–98.9; O2SAT 93–97
--- NOTE | 2025-08-29 12:53 | ECG ---
[facility] Test Date: 2025-08-27 Test Time: 07:57:01 Pat Name: BRANDON LEE Department: Room: 0295T A Gender: F Punch Hand: MAX MARTINS LVN : 1950 Requested By: YNES MONTOYA Order Number: [id number] Reading MD: Stephon Mack Measurements Intervals [place] Rate: 75 P: 55 ME: 184 QRS: -17 QRSD: 142 T: 84 QT: 449 QTc: 502 Interpretive Statements Sinus rhythm Left bundle branch block Electronically Signed On 08-30-2025 15:18:21 PST by Stephon Mack Please click the below link to view image of tracing.
--- NOTE | 2025-08-29 12:53 | ECG ---
[facility] Test Date: 2025-08-27 Test Time: 07:58:17 Pat Name: BRANDON LEE Department: Room: 0295T A Gender: F [employer]visor [employer] Room: MAX MARTINS LVN : 1950 Requested By: MAXIMILIANO CRAIN Order Number: [id number] Reading MD: Stephon Mack Measurements Intervals [place] Rate: 74 P: 61 VA: 184 QRS: -23 QRSD: 147 T: 101 QT: 424 QTc: 471 Interpretive Statements Sinus rhythm Left bundle branch block Electronically Signed On 08-30-2025 15:18:22 PST by Stephon Mack Please click the below link to view image of tracing.
[2025-08-30] VITALS (13 sets, daily range): BP systolic 117–137; BP diastolic 55–81; PULSE 72–105; RESP 16–19; TEMP 97.6–98.4; O2SAT 18–100
[2025-08-31] VITALS (8 sets, daily range): BP systolic 108–142; BP diastolic 61–86; PULSE 0–87; RESP 16–20; TEMP 37.1; O2SAT 90–96
[2025-08-31 11:53] LABS: Base Excess 1.3 mmol/L (-2.0-3.0)
[2025-08-31] MEDS ORDERED: CARV-214 PO (14:56)
[2025-08-31] MEDS ORDERED: APIX5TAB PO (14:56)
[2025-08-31] MEDS ORDERED: HYDR-4902 PO (14:58)
--- NOTE | 2025-08-31 15:42 | DVHDS2 ---
Discharge Summary Date of Admission Aug 24, 2025 at 01:25 Date of Discharge: Aug 31, 2025 Labs/Diagnostic Data: Laboratory Results Test 08/31/25 11:35 08/27/25 06:04 08/25/25 06:25 08/24/25 01:36 Blood Gas Specimen Type Arterial Blood Gas Sample Site Right radial Blood Gas Patient Temperature 37.0 Arterial Blood Date Drawn [id number] Arterial Blood pH 7.491 (7.350-7.450) Arterial Blood Partial Pressure CO2 31.9 mmHg (32.0-45.0) Arterial Blood Partial Pressure O2 66.5 mmHg (83.0-108.0) Arterial Blood HCO3 23.8 mmol/L (21.0-28.0) Arterial Blood Oxygen Saturation 93.3 % (94.0-98.0) Arterial Blood Base Excess 1.3 mmol/L (-2.0-3.0) Arterial Blood Oxyhemoglobin 92.1 % (94.0-98.0) Arterial Blood Carboxyhemoglobin 0.9 % (0.5-1.5) Arterial Blood Methemoglobin 0.4 % (0.0-1.5) Arterial Blood Deoxyhemoglobin 6.6 % (0.0-5.0) [place] Test Positive Blood Gas Total Hemoglobin 15.20 g/dL (12.0-16.0) Blood Gas Modality Room air FiO2 % 21.0 White Blood Count 5.3 10^3/uL (4.4-10.8) Red Blood Count 4.38 10^6/uL (4.0-5.20) Hemoglobin 12.5 g/dL (12.2-16.2) Hematocrit 37.7 % (36.0-46.0) Mean Corpuscular Volume 86.0 fL (80.0-100.0) Mean Corpuscular Hemoglobin 28.5 pg (28.0-32.0) Mean Corpuscular Hemoglobin Concent 33.1 g/dL (32.0-36.0) Red Cell Distribution Width 14.2 % (11.8-14.3) Platelet Count 340 10^3/uL (140-450) Mean Platelet Volume 8.4 fL (6.9-10.8) Neutrophils (%) (Auto) 56.5 % (37.0-80.0) Lymphocytes (%) (Auto) 21.7 % (10.0-50.0) Monocytes (%) (Auto) 13.6 % (0.0-12.0) Eosinophils (%) (Auto) 7.3 % (0.0-7.0) Basophils (%) (Auto) 0.9 % (0.0-2.0) Neutrophils # (Auto) 3.0 10 ^3/uL (1.6-8.6) Lymphocytes # (Auto) 1.1 10 ^3/uL (0.4-5.4) Monocytes # (Auto) 0.7 10 ^3/uL (0-1.3) Eosinophils # (Auto) 0.4 10 ^3/uL (0-0.8) Basophils # (Auto) 0 10 ^3/uL (0-0.2) Nucleated Red Blood Cells 0.2 % Prothrombin Time 12.5 sec (9.3-11.8) Prothrombin Time INR 1.20 (0.9-1.15) Activated Partial Thromboplast Time 32.2 SEC (24.5-34.5) Magnesium Level 2.0 mg/dL (1.6-2.6) Thyroid Stimulating Hormone (TSH) 0.01 uIU/mL (0.55-4.78) Free Thyroxine (T4) Calculated 1.24 ng/dL (0.89-1.76) Free Triiodothyronine (T3) pg/mL 3.74 pg/mL (2.3-4.2) Sodium Level 137 mmol/L (136-145) Potassium Level 3.8 mmol/L (3.5-5.1) Chloride Level 95 mmol/L (98-107) Carbon Dioxide Level 31 mmol/L (20-31) Anion Gap 11 (5-15) Blood Urea Nitrogen 9 mg/dL (9-23) Creatinine 0.45 mg/dL (0.550-1.02) Glomerular Filtration Rate Calc 99 mL/min (>90) BUN/Creatinine Ratio 20.0 (10.0-20.0) Serum Glucose 99 mg/dL (74-106) Calcium Level 8.6 mg/dL (8.7-10.4) Total Bilirubin 0.6 mg/dL (0.2-1.0) Aspartate Amino Transferase (AST) 10 U/L (13-40) Alanine Aminotransferase (ALT) < 9 U/L (7-40) Alkaline Phosphatase 90 U/L (46-116) Total Protein 5.6 g/dL (5.7-8.2) Albumin 3.1 g/dL (3.2-4.8) Triglycerides Level 92 mg/dL (< 150) Cholesterol Level 142 mg/dL (< 200) LDL Cholesterol 97 mg/dL (< 100) HDL Cholesterol 32 mg/dL (40-59) D-Dimer, Quantitative 2.36 mg/L FEU (0.0-0.49) Troponin I High Sensitivity 21 ng/L (</=34) Test 08/23/25 22:40 B-Type Natriuretic Peptide 373.54 pg/mL (0-100) Lipase 20 U/L (12-53) Other Laboratory Tests 08/27/25 06:04 08/25/25 06:25 Brief Hx & Hospital Course: Final diagnoses: Acute hypoxic respiratory failure Acute pulmonary embolism COPD Chronic respiratory failure History of CHF History of CVA Rheumatoid arthritis Hypertension She was admitted for chest pain Diagnosed with R PE She was given Lovenox then switched to Eliquis She was hypoxic initially but then her chest pain resolved and hypoxia improved Today her chest pain is resolved Her pulse Ox on room air is about 93% ABGs also shows PO2 is not low enough to qualify for home O2 DC home on Eliquis [place] prn Coreg F/U PCP WOODY Condition at Discharge: Stable Final Diagnosis/Problems List Acute hypoxic respiratory failure Acute pulmonary embolism COPD Chronic respiratory failure History of CHF History of CVA Rheumatoid arthritis Hypertension Discharge Disposition: Home SNF Discharge Will this Physician continue t: No Discharge Instruct/Medications Diet: Cardiac 2g Na,low cholest Activity: No Restrictions, As Tolerated Follow Up/Referral: PCP WOODY Medications: Eliquis 5 mg bid [place] prn Scheduled Apixaban Base (Eliquis), 5 MG PO BID Azithromycin (Azithromycin), 1 TAB PO DAILY Carvedilol (Coreg), 3.125 MG PO Q12HR Furosemide (Lasix), 1 TAB PO DAILY Leflunomide (Leflunomide), 1 TAB PO DAILY, (Reported) Prednisone (Prednisone), 10 MG PO DAILY Scheduled PRN Hydrocodone-Acetaminophen (Hydrocodone Bitartrate/AC 5-325 mg), 0.5 TAB PO Q6HP PRN Discharge Statement: "Patient was advised to return to the ER or call 911 if any headaches, dizziness, shortness of breath, chest pain, abdominal pain, bleeding, fevers, or worsening of medical condition. Patient was counseled about treatment plan, medications, possible side effects, patientverbalized understanding. All questions were answered to the best of my ability. This discharge took greater then 30 minutes in planning, reviewing documentation, counseling the patient, and discussing with other team members." ASSESSMENT ASSESSMENT Assessment PE Date of Service: Aug 31, 2025 Billing Provider: YNES MONTOYA MD Common Visit Codes: NOT BILLABLE YNES MONTOYA MD Aug 31, 2025 15:42
== END 2025-08-31 18:48 | disposition home or self-care (01) | DRG 175 ==
LOC: ER 22:00 → EDBD 22:00 → EDSEX 22:00 → OVERFLOW 08-24 01:25 → TELE-WESTW 08-24 08:40
PROVIDERS: ADMIT Internal Medicine Geriatric Medicine; ATTEND Internal Medicine Geriatric Medicine
DX: I26.99 Other pulmonary embolism without acute cor pulmonale (principal); J96.21 Acute and chronic respiratory failure with hypoxia; M06.9 Rheumatoid arthritis, unspecified; I11.0 Hypertensive heart disease with heart failure; J44.9 Chronic obstructive pulmonary disease, unspecified; J98.4 Other disorders of lung; Z91.040 Latex allergy status; Z88.5 Allergy status to narcotic agent; Z87.891 Personal history of nicotine dependence; Z90.49 Acquired absence of other specified parts of digestive tract; Z98.891 History of uterine scar from previous surgery; I25.2 Old myocardial infarction; I50.9 Heart failure, unspecified; Z86.73 Personal history of transient ischemic attack (TIA), and cerebral infarction without residual deficits; Z85.3 Personal history of malignant neoplasm of breast
CPT/HCPCS: 36415; 36600; 71045; 71275; 80048; 80053; 80061; 82805; 83690; 83735; 83880; 84439; 84443; 84481; 84484; 85025; 85379; 85610; 85730; 93005; 93306; 94640; 96374; 97163; G0378; J1100